=== PATIENT | male | born 1980 | race Caucasian/White ===

== ENCOUNTER 2018-10-22 17:01 | Emergency (ER) | payer OTHER, SELFPAY ==
[2018-10-22 17:46] LABS: Absolute Lymphocytes (CBC) 2.1 K/uL (0.7-4.9); Basophils % 0.6 % (0-1.3); Eosinophils % 3.5 % (0-4.4); Hematocrit 48.6 % (39.6-49.0); Lymphocytes % 31.2 % (15.3-44.8); MPV 7.1 fL (7.6-11.3); Monocytes % 11.2 % (3.3-12.3); RBC Red Blood Cell Count 5.28 M/uL (4.33-5.43)
[2018-10-22 18:03] LABS: ALT/SGPT 22 U/L (12-78); AST/SGOT 15 U/L (15-37); Alkaline Phosphatase 74 U/L (45-117); BUN Blood Urea Nitrogen 8 mg/dL (7-18); Bicarbonate 27 mmol/L (21-32); Bilirubin Direct 0.2 mg/dL (0-0.2); Bilirubin Total 0.7 mg/dL (0.2-1.0); Glucose Level 89 mg/dL (74-106); Lipase 42 U/L (73-393); Potassium 3.7 mmol/L (3.5-5.1); Protein, Total 7.1 g/dL (6.4-8.2); Sodium Level 138 mmol/L (136-145)
[2018-10-22] MEDS ORDERED: NA CHLORIDE 0.9% 1,000 ML ONE (18:07)
--- NOTE | 2018-10-22 18:46 | ER ---
Nurse's Notes [facility] Name: Nilson Chicas Age: 38 yrs Sex: Male : 1980 Arrival Date: 10/22/2018 Time: 17:03 Bed 17 Private MD: Diagnosis: Diarrhea, unspecified Presentation: 10/22 17:04 Presenting complaint: Patient states: i ve been having abd pain for 4 days now and hj reports diarrhea; denies fever and chills; denies N/V; pt requested for a work note to go back to work;. Transition of care: patient was not received from another setting of care. Onset of symptoms was October 22, 2018. Risk Assessment: Do you want to hurt yourself or someone else? Patient reports no desire to harm self or others. Initial Sepsis Screen: Does the patient meet any 2 criteria? No. Patient's initial sepsis screen is negative. Does the patient have a suspected source of infection? No. Patient's initial sepsis screen is negative. Care prior to arrival: None. 17:04 Method Of Arrival: Ambulatory 17:04 Acuity: PA 3 hj Historical: - Allergies: 17:06 PENICILLINS; hj - PMHx: 17:06 None; hj - PSHx: 17:06 None; hj - Immunization history:: Adult Immunizations up to date. - Social history:: Smoking status: Patient uses tobacco products, smokes one pack cigarettes per day. - Ebola Screening: : Patient negative for fever greater than or equal to 101.5 degrees Fahrenheit, and additional compatible Ebola Virus Disease symptoms Patient denies exposure to infectious person Patient denies travel to an Ebola-affected area in the 21 days before illness onset No symptoms or risks identified at this time. Screenin:39 Abuse screen: Denies threats or abuse. Denies injuries from another. Nutritional ca1 screening: No deficits noted. Tuberculosis screening: No symptoms or risk factors identified. Fall Risk IV access (20 points). Assessment: 17:39 General: Appears in no apparent distress. comfortable, Behavior is calm, cooperative, ca1 appropriate for age. General: pt reports pain has resolved. He had diarrhea but has resolved too. He said he just needs a work note to go back to work. . Pain: Denies pain. Neuro: Level of Consciousness is awake, alert, obeys commands, Oriented to person, place, time, situation. Cardiovascular: Heart tones S1 S2 present Capillary refill < 3 seconds Patient's skin is warm and dry. Respiratory: Airway is patent Respiratory effort is even, unlabored, Respiratory pattern is regular, symmetrical, Breath sounds are clear bilaterally. GI: Abdomen is flat, non-distended, Bowel sounds present X 4 quads. Abd is soft and non tender X 4 quads. : No deficits noted. No signs and/or symptoms were reported regarding the genitourinary system. EENT: No deficits noted. No signs and/or symptoms were reported regarding the EENT system. Derm: Skin is intact, is healthy with good turgor, Skin is pink, warm \T\ dry. Musculoskeletal: Circulation, motion, and sensation intact. Capillary refill < 3 seconds. 18:40 Reassessment: Patient appears in no apparent distress at this time. Patient and/or ca1 family updated on plan of care and expected duration. Pain level reassessed. Patient is alert, oriented x 3, equal unlabored respirations, skin warm/dry/pink. 19:16 Reassessment: Patient appears in no apparent distress at this time. Patient is alert, ca1 oriented x 3, equal unlabored respirations, skin warm/dry/pink. Vital Signs: 17:06 BP 129 / 80; Pulse 114; Resp 16; Temp 98.5(TE); Pulse Ox 98% on R/A; Weight 81.65 kg; hj Height 6 ft. 0 in. (182.88 cm); Pain 2/10; 17:43 BP 122 / 94; Pulse 76; Resp 18 S; Pulse Ox 98% on R/A; ca1 18:39 BP 120 / 80; Pulse 81; Resp 16 S; Temp 98.2(O); Pulse Ox 98% on R/A; ca1 19:16 BP 110 / 76; Pulse 79; Resp 17 S; Temp 98.4(O); Pulse Ox 97% on R/A; ca1 17:06 Body Mass Index 24.41 (81.65 kg, 182.88 cm) ED Course: 17:03 Patient arrived in ED. as 17:05 Triage completed. hj 17:06 Arm band placed on right wrist. hj 17:08 Jethro Grimaldo, RN is Primary Nurse. bp 17:09 Primary Nurse role handed off by Jethro Grimaldo, BENNY bp 17:14 Ayaan Preston NP is PHCP. pm1 17:14 Jacinto Hernandez MD is Attending Physician. pm1 17:28 Esther Vargas RN is Primary Nurse. ca1 17:39 Patient has correct armband on for positive identification. Placed in gown. Bed in low ca1 position. Call light in reach. Side rails up X 1. Pulse ox on. NIBP on. Warm blanket given. 17:39 No provider procedures requiring assistance completed. Inserted saline lock: 20 gauge ca1 in right antecubital area, using aseptic technique. Blood collected. 18:12 Urine collected: clean catch specimen, clear. dh3 19:18 IV discontinued, intact, bleeding controlled, No redness/swelling at site. Pressure ca1 dressing applied. Administered Medications: 17:53 Drug: NS 0.9% 1000 ml Route: IV; Rate: 1000 ml; Site: right antecubital; ca1 19:00 Follow up: Response: No adverse reaction; IV Status: Completed infusion ca1 Outcome: 18:46 Discharge ordered by . pm1 19:18 Discharged to home ambulatory. ca1 19:18 Condition: stable 19:18 Discharge instructions given to patient, Instructed on discharge instructions, follow up and referral plans. Demonstrated understanding of instructions, follow-up care. 19:19 Patient left the ED. ca1 Signatures: Li Rivera Henry, RN RN Ayaan Preston NP [employer] pm1 ChaoMarielaCatalina 3 Jethro Grimaldo RN RN Esther Vargas RN RN [facility] Corrections: (The following items were deleted from the chart) 17:08 17:04 Presenting complaint: Patient states: i ve been having abd pain for 4 days now hj and reports diarrhea; denies fever and chills; denies N/V; hj
--- NOTE | 2018-10-22 18:47 | EDPHYS ---
Physician Documentation [facility] Name: Nilson Chicas Age: 38 yrs Sex: Male : 1980 Arrival Date: 10/22/2018 Time: 17:03 Bed 17 Private MD: ED Physician Jacinto Hernandez HPI: 10/22 17:45 This 38 yrs old Male presents to ER via Ambulatory with complaints of pm1 Diarrhea. 17:45 The patient presents to the emergency department with diarrhea. pm1 17:45 Onset: The symptoms/episode began/occurred 4 day(s) ago. Possible causes: bad food pm1 exposure, moving and eating food out of coolers. The symptoms are aggravated by nothing. The symptoms are alleviated by nothing. Associated signs and symptoms: Pertinent negatives: abdominal pain, dysuria, fever, nausea, vomiting. Severity of symptoms: in the emergency department the symptoms are unchanged. The patient has not experienced similar symptoms in the past. The patient has not recently seen a physician. Historical: - Allergies: 17:06 PENICILLINS; hj - PMHx: 17:06 None; hj - PSHx: 17:06 None; hj - Immunization history:: Adult Immunizations up to date. - Social history:: Smoking status: Patient uses tobacco products, smokes one pack cigarettes per day. - Ebola Screening: : Patient negative for fever greater than or equal to 101.5 degrees Fahrenheit, and additional compatible Ebola Virus Disease symptoms Patient denies exposure to infectious person Patient denies travel to an Ebola-affected area in the 21 days before illness onset No symptoms or risks identified at this time. ROS: 17:45 Constitutional: Negative for fever, chills, and weight loss, Eyes: Negative for injury, pm1 pain, redness, and discharge, ENT: Negative for injury, pain, and discharge, Neck: Negative for injury, pain, and swelling, Cardiovascular: Negative for chest pain, palpitations, and edema, Respiratory: Negative for shortness of breath, cough, wheezing, and pleuritic chest pain. 17:45 Back: Negative for injury and pain, : Negative for injury, bleeding, discharge, and swelling, MS/Extremity: Negative for injury and deformity, Skin: Negative for injury, rash, and discoloration, Neuro: Negative for headache, weakness, numbness, tingling, and seizure. 17:45 Abdomen/GI: Positive for diarrhea, Negative for abdominal pain, nausea and vomiting. Exam: 17:45 Constitutional: This is a well developed, well nourished patient who is awake, alert, pm1 and in no acute distress. Head/Face: Normocephalic, atraumatic. Neck: Trachea midline, no thyromegaly or masses palpated, and no cervical lymphadenopathy. Supple, full range of motion without nuchal rigidity, or vertebral point tenderness. No Meningismus. Chest/axilla: Normal chest wall appearance and motion. Nontender with no deformity. No lesions are appreciated. Cardiovascular: Regular rate and rhythm with a normal S1 and S2. No gallops, murmurs, or rubs. Normal PMI, no JVD. No pulse deficits. Respiratory: Lungs have equal breath sounds bilaterally, clear to auscultation and percussion. No rales, rhonchi or wheezes noted. No increased work of breathing, no retractions or nasal flaring. 17:45 Back: No spinal tenderness. No costovertebral tenderness. Full range of motion. Skin: Warm, dry with normal turgor. Normal color with no rashes, no lesions, and no evidence of cellulitis. MS/ Extremity: Pulses equal, no cyanosis. Neurovascular intact. Full, normal range of motion. 17:45 Abdomen/GI: Inspection: abdomen appears normal, Bowel sounds: normal, Palpation: abdomen is soft and non-tender, in all quadrants. 17:45 Neuro: Orientation: is normal, Motor: is normal, moves all fours. Vital Signs: 17:06 BP 129 / 80; Pulse 114; Resp 16; Temp 98.5(TE); Pulse Ox 98% on R/A; Weight 81.65 kg; hj Height 6 ft. 0 in. (182.88 cm); Pain 2/10; 17:43 BP 122 / 94; Pulse 76; Resp 18 S; Pulse Ox 98% on R/A; ca1 18:39 BP 120 / 80; Pulse 81; Resp 16 S; Temp 98.2(O); Pulse Ox 98% on R/A; ca1 19:16 BP 110 / 76; Pulse 79; Resp 17 S; Temp 98.4(O); Pulse Ox 97% on R/A; ca1 17:06 Body Mass Index 24.41 (81.65 kg, 182.88 cm) hj MDM: 17:19 Patient medically screened. pm1 18:45 Data reviewed: vital signs. Data interpreted: Pulse oximetry: on room air is 98 %. pm1 Interpretation: normal. Counseling: I had a detailed discussion with the patient and/or guardian regarding: the historical points, exam findings, and any diagnostic results supporting the discharge/admit diagnosis, lab results, the need for outpatient follow up, to return to the emergency department if symptoms worsen or persist or if there are any questions or concerns that arise at home. 10/22 17:23 Order name: Basic Metabolic Panel pm1 10/22 17:23 Order name: CBC with Diff; Complete Time: 18:10 pm1 10/22 17:23 Order name: Creatinine for Radiology; Complete Time: 18:10 pm1 10/22 17:23 Order name: Hepatic Function; Complete Time: 18:10 pm1 10/22 17:23 Order name: Lipase; Complete Time: 18:10 pm1 10/22 17:24 Order name: Basic Metabolic Panel; Complete Time: 18:10 EDMS 10/22 17:23 Order name: IV Saline Lock; Complete Time: 17:39 pm1 10/22 17:23 Order name: Labs collected and sent; Complete Time: 17:39 pm1 10/22 17:40 Order name: Urine Dipstick-Ancillary (obtain specimen); Complete Time: 18:13 pm1 10/22 18:32 Order name: Urine Dipstick--Ancillary (enter results) bd Administered Medications: 17:53 Drug: NS 0.9% 1000 ml Route: IV; Rate: 1000 ml; Site: right antecubital; ca1 19:00 Follow up: Response: No adverse reaction; IV Status: Completed infusion ca1 Disposition: 10/23 05:52 Co-signature as Attending Physician, Jacinto Hernandez MD I agree with the assessment and eliseo plan of care. Disposition: 10/22/18 18:46 Discharged to Home. Impression: Diarrhea, unspecified. - Condition is Stable. - Discharge Instructions: Food Choices to Help Relieve Diarrhea, Adult, Diarrhea, Adult, Food Poisoning. - Work release form, Medication Reconciliation Form, Thank You Letter, Antibiotic Education, Prescription Opioid Use form. - Follow up: Emergency Department; When: As needed; Reason: Worsening of condition. Follow up: Private Physician; When: 2 - 3 days; Reason: Recheck today's complaints, Continuance of care, Re-evaluation by your physician. - Problem is new. - Symptoms have improved. Signatures: Dispatcher [employer] EDMS Jacinto Hernandez MD MD cha Joaquin, Henry RN RN hj Ayaan Preston, RECEIVING ROOM CLERK RECEIVING ROOM CLERK pm1 Esther Vargas RN RN ca1 Corrections: (The following items were deleted from the chart) 10/22 19:19 18:46 10/22/2018 18:46 Discharged to Home. Impression: Diarrhea, unspecified. Condition ca1 is Stable. Forms are Medication Reconciliation Form, Thank You Letter, Antibiotic Education, Prescription Opioid Use. Follow up: Emergency Department; When: As needed; Reason: Worsening of condition. Follow up: Private Physician; When: 2 - 3 days; Reason: Recheck today's complaints, Continuance of care, Re-evaluation by your physician. Problem is new. Symptoms have improved. pm1
[2018-10-22 20:09] LABS: Urine Blood NEGATIVE (NEG); Urine Glucose NEGATIVE (NEG); Urine Protein NEGATIVE (NEG)
== END 2018-10-22 19:19 | disposition home or self-care (01) ==
LOC: ER 17:01
DX: R19.7 Diarrhea, unspecified (principal); Z88.0 Allergy status to penicillin; F17.210 Nicotine dependence, cigarettes, uncomplicated
CPT/HCPCS: 36415; 80048; 80076; 81003; 83690; 85025; 96360; 99284; J7030

== ENCOUNTER 2018-10-27 15:04 | Emergency (ER) | payer SELFPAY ==
--- NOTE | 2018-10-27 15:23 | ER ---
Nurse's Notes [facility] Name: Nilson Chicas Age: 38 yrs Sex: Male : 1980 Arrival Date: 10/27/2018 Time: 15:06 Bed 15 Private MD: Angelina Aj H Diagnosis: Diarrhea, unspecified;Vomiting, unspecified Presentation: 10/27 15:09 Presenting complaint: Patient states: N/V/D for three days, denies pain or fevers, I am la1 in between moving so I have been eating food out of a cooler. Denies ill contacts. Transition of care: patient was not received from another setting of care. Onset of symptoms was October 27, 2018. Risk Assessment: Do you want to hurt yourself or someone else? Patient reports no desire to harm self or others. Initial Sepsis Screen: Does the patient meet any 2 criteria? No. Patient's initial sepsis screen is negative. Does the patient have a suspected source of infection? No. Patient's initial sepsis screen is negative. Care prior to arrival: None. 15:09 Method Of Arrival: Ambulatory la1 15:09 Acuity: PA 3 la1 Historical: - Allergies: 15:10 PENICILLINS; la1 - Home Meds: 15:10 None [Active]; la1 - PMHx: 15:10 None; la1 - PSHx: 15:10 None; la1 - Immunization history:: Adult Immunizations up to date. - Social history:: Smoking status: Patient uses tobacco products, smokes one pack cigarettes per day. - Ebola Screening: : No symptoms or risks identified at this time. Screenin:20 Abuse screen: Denies threats or abuse. Denies injuries from another. Nutritional sg screening: No deficits noted. Tuberculosis screening: No symptoms or risk factors identified. Never had TB. Fall Risk None identified. Assessment: 15:20 General: Appears in no apparent distress. well groomed, well developed, well nourished, sg Behavior is calm, cooperative, appropriate for age. Pain: Complains of pain in abdomen Pain currently is 2 out of 10 on a pain scale. Quality of pain is described as aching. Neuro: Level of Consciousness is awake, alert, obeys commands, Oriented to person, place, time, Corn Cutter Operator are equal bilaterally Moves all extremities. Full function Speech is normal, Facial symmetry appears normal. Cardiovascular: Capillary refill is brisk in bilateral fingers Patient's skin is warm and dry. Chest pain is denied. Respiratory: Airway is patent Respiratory effort is even, unlabored, Respiratory pattern is regular, symmetrical, Breath sounds are clear. GI: Abdomen is round non-distended, Bowel sounds present X 4 quads. Abd is soft and non tender X 4 quads. Reports diarrhea, tolerance of fluids, tolerance of food. : No signs and/or symptoms were reported regarding the genitourinary system. EENT: No signs and/or symptoms were reported regarding the EENT system. Derm: Skin is pink, warm \\T\\ dry. Musculoskeletal: No deficits noted. Circulation, motion, and sensation intact. Range of motion: intact in all extremities, Swelling absent. 15:21 Reassessment: pt reports " Im fine with the vomiting and diarrhea, Im going to be sg honest, im really just here because I need a work excuse.". Vital Signs: 15:10 BP 137 / 89; Pulse 94; Resp 16; Temp 97.5; Pulse Ox 98% on R/A; Weight 81.65 kg; Height la1 6 ft. 0 in. (182.88 cm); 15:10 Body Mass Index 24.41 (81.65 kg, 182.88 cm) la1 ED Course: 15:06 Patient arrived in ED. mr 15:06 None, None is Private Physician. mr 15:06 Angelina Aj, DO is Private Physician. mr 15:10 Triage completed. la1 15:10 Arm band placed on left wrist. la1 15:13 Ayaan Preston, NEELAM is PHCP. pm1 15:13 Sean Scott MD is Attending Physician. pm1 15:16 Sanjiv Forde, RN is Primary Nurse. sg 15:20 Patient has correct armband on for positive identification. Bed in low position. Pulse sg ox on. NIBP on. 15:30 No provider procedures requiring assistance completed. Patient did not have IV access sg during this emergency room visit. Administered Medications: No medications were administered Outcome: 15:22 Discharge ordered by MD. pm1 15:24 Discharged to home ambulatory, with family. sg 15:24 Condition: good 15:24 Discharge instructions given to patient, Instructed on discharge instructions, follow up and referral plans. safety practices, Demonstrated understanding of instructions, follow-up care. 15:24 Patient left the ED. sg Signatures: Sanjiv Forde RN RN sg Liat Dove Solomon, Horacio RN RN la1 Ayaan Preston, NAILHEAD PUNCHER NAILHEAD PUNCHER pm1 Corrections: (The following items were deleted from the chart) 15:31 15:20 GI: Abdomen is round non-distended, Bowel sounds present X 4 quads. Abd is soft sg and non tender X 4 quads. sg
--- NOTE | 2018-10-27 15:23 | EDPHYS ---
Physician Documentation [facility] Name: Nilson Chicas Age: 38 yrs Sex: Male : 1980 Arrival Date: 10/27/2018 Time: 15:06 Bed 15 Private MD: Angelina Aj H ED Physician Sean Scott HPI: 10/27 15:20 This 38 yrs old Male presents to ER via Ambulatory with complaints of pm1 Vomiting/Diarrhea. 15:20 The patient presents to the emergency department with vomiting, 2 times since the onset pm1 of symptoms, diarrhea. Onset: The symptoms/episode began/occurred 9 day(s) ago. Possible causes: bad food exposure, Patient is eating sandwich ingredients out of cooler since moving here. Plans on getting refrigerator on the weekend. Associated signs and symptoms: Pertinent negatives: abdominal pain, constipation, dysuria, fever, GI bleeding. Severity of symptoms: Pain is currently a 0 / 10. The patient has been recently seen at the [facility] Emergency Department, last week, same complaint. Patient was seen here by me 5 days ago for the same complaint. patient recently moved here and has been eating sandwich ingredients out of a cooler. Patient feels that this is the cause for his symptoms. Patient denies any abdominal pain and his diarrhea and 2 total episodes of vomiting since onset of his symptoms do not bother him. Patient does not want any evaluation with labs or imaging. He does not want any medications. He just wants a work note to go to work tomorrow.. Historical: - Allergies: 15:10 PENICILLINS; la1 - Home Meds: 15:10 None [Active]; la1 - PMHx: 15:10 None; la1 - PSHx: 15:10 None; la1 - Immunization history:: Adult Immunizations up to date. - Social history:: Smoking status: Patient uses tobacco products, smokes one pack cigarettes per day. - Ebola Screening: : No symptoms or risks identified at this time. ROS: 15:20 Constitutional: Negative for fever, chills, and weight loss, Eyes: Negative for injury, pm1 pain, redness, and discharge, ENT: Negative for injury, pain, and discharge, Neck: Negative for injury, pain, and swelling, Cardiovascular: Negative for chest pain, palpitations, and edema, Respiratory: Negative for shortness of breath, cough, wheezing, and pleuritic chest pain. 15:20 Back: Negative for injury and pain, : Negative for injury, bleeding, discharge, and swelling, MS/Extremity: Negative for injury and deformity, Skin: Negative for injury, rash, and discoloration, Neuro: Negative for headache, weakness, numbness, tingling, and seizure. 15:20 Abdomen/GI: Positive for nausea, vomiting, and diarrhea, Negative for abdominal pain, constipation. Exam: 15:20 Constitutional: This is a well developed, well nourished patient who is awake, alert, pm1 and in no acute distress. Head/Face: Normocephalic, atraumatic. Chest/axilla: Normal chest wall appearance and motion. Nontender with no deformity. No lesions are appreciated. Cardiovascular: Regular rate and rhythm with a normal S1 and S2. No gallops, murmurs, or rubs. No pulse deficits. Respiratory: Lungs have equal breath sounds bilaterally, clear to auscultation and percussion. No rales, rhonchi or wheezes noted. No increased work of breathing, no retractions or nasal flaring. Abdomen/GI: Soft, non-tender, with normal bowel sounds. No distension or tympany. No guarding or rebound. No evidence of tenderness throughout. Back: No spinal tenderness. No costovertebral tenderness. Full range of motion. Skin: Warm, dry with normal turgor. Normal color with no rashes, no lesions, and no evidence of cellulitis. MS/ Extremity: Pulses equal, no cyanosis. Neurovascular intact. Full, normal range of motion. 15:20 Neuro: Orientation: is normal, Motor: is normal, moves all fours, Sensation: is normal, no obvious gross deficits, Gait: is steady, at a normal pace, without difficulty. Vital Signs: 15:10 BP 137 / 89; Pulse 94; Resp 16; Temp 97.5; Pulse Ox 98% on R/A; Weight 81.65 kg; Height la1 6 ft. 0 in. (182.88 cm); 15:10 Body Mass Index 24.41 (81.65 kg, 182.88 cm) la1 MDM: 15:20 ED course: Patient does not want any lab work or any medications. He is not concerned pm1 about his diarrhea or 2 episodes of vomiting since onset. He feels fine and he just wants a return to work note for tomorrow. 15:20 Counseling: I had a detailed discussion with the patient and/or guardian regarding: the pm1 historical points, exam findings, and any diagnostic results supporting the discharge/admit diagnosis, the need for outpatient follow up, to return to the emergency department if symptoms worsen or persist or if there are any questions or concerns that arise at home. 15:20 Data reviewed: vital signs. Data interpreted: Pulse oximetry: on room air is 98 %. pm1 Interpretation: normal. 15:22 Patient medically screened. pm1 Administered Medications: No medications were administered Disposition: 10/27/18 15:22 Discharged to Home. Impression: Diarrhea, unspecified, Vomiting, unspecified. - Condition is Stable. - Discharge Instructions: Food Choices to Help Relieve Diarrhea, Adult, Diarrhea, Adult, Food Poisoning, [id number], Vomiting, Adult. - Work release form, Medication Reconciliation Form, Thank You Letter, Antibiotic Education, Prescription Opioid Use form. - Follow up: Emergency Department; When: As needed; Reason: Worsening of condition. Follow up: Private Physician; When: 2 - 3 days; Reason: Recheck today's complaints, Continuance of care, Re-evaluation by your physician. - Problem is new. - Symptoms have improved. Signatures: Sanjiv Forde RN RN sg Horacio Carbajal RN RN la1 Ayaan Preston, AUTOMATIC COIN MACHINE MECHANIC AUTOMATIC COIN MACHINE MECHANIC pm1 Corrections: (The following items were deleted from the chart) 15:24 15:22 10/27/2018 15:22 Discharged to Home. Impression: Diarrhea, unspecified; Vomiting, sg unspecified. Condition is Stable. Forms are Medication Reconciliation Form, Thank You Letter, Antibiotic Education, Prescription Opioid Use. Follow up: Emergency Department; When: As needed; Reason: Worsening of condition. Follow up: Private Physician; When: 2 - 3 days; Reason: Recheck today's complaints, Continuance of care, Re-evaluation by your physician. Problem is new. Symptoms have improved. pm1
== END 2018-10-27 15:24 | disposition home or self-care (01) ==
LOC: ER 15:04
DX: R11.10 Vomiting, unspecified (principal); R19.7 Diarrhea, unspecified; Z88.0 Allergy status to penicillin; F17.210 Nicotine dependence, cigarettes, uncomplicated
CPT/HCPCS: 99283

== ENCOUNTER 2020-02-20 08:43 | Emergency (ER) | payer SELFPAY ==
--- NOTE | 2020-02-20 09:35 | ER ---
Nurse's Notes [facility] Name: Nilson Chicas Age: 39 yrs Sex: Male : 1980 Arrival Date: 02/20/2020 Time: 08:44 Bed 17 Private MD: Diagnosis: Lateral epicondylitis, left elbow;Lateral epicondylitis Presentation: 02/19 09:16 Chief complaint: Patient states: Left elbow pain x 2 week, radiating to left shoulder jl7 since yesterday, denies chest pain, feeling like burning/pinching; denies trauma. Reports flushing with nausea x 1 day. Coronavirus screen: Client denies travel out of the [place] in the last 14 days. At this time, the client does not indicate any symptoms associated with coronavirus-19. Ebola Screen: No symptoms or risks identified at this time. Initial Sepsis Screen: Does the patient meet any 2 criteria? No. Patient's initial sepsis screen is negative. Does the patient have a suspected source of infection? No. Patient's initial sepsis screen is negative. Risk Assessment: Do you want to hurt yourself or someone else? Patient reports no desire to harm self or others. Onset of symptoms was February 09, 2020. Care prior to arrival: None. Transition of care: patient was not received from another setting of care. 09:16 Method Of Arrival: Ambulatory 7 09:16 Acuity: PA 4 jl7 Triage Assessment: 09:19 General: Appears in no apparent distress. uncomfortable, Behavior is calm, cooperative, jl7 appropriate for age. Pain: Complains of pain in left elbow Pain radiates to posterior aspect of left shoulder Pain currently is 7 out of 10 on a pain scale. Quality of pain is described as sharp, Is continuous. Neuro: Level of Consciousness is awake, alert, obeys commands, Oriented to person, place, time, situation. Cardiovascular: Patient's skin is warm and dry. Respiratory: Airway is patent Respiratory effort is even, unlabored, Respiratory pattern is regular, symmetrical. Derm: Skin is pink, warm \T\ dry. Musculoskeletal: Range of motion: intact in all extremities, Swelling present in left elbow Tenderness present in left elbow. Historical: - Allergies: 09:19 PENICILLINS; jl7 - Home Meds: 09:19 None [Active]; jl7 - PMHx: 09:19 None; jl7 - PSHx: 09:19 None; jl7 - Immunization history:: Adult Immunizations up to date. - Social history:: Smoking status: Patient denies any tobacco usage or history of. - Family history:: not pertinent. Screenin:20 Abuse screen: Denies threats or abuse. Denies injuries from another. Nutritional jl7 screening: No deficits noted. Tuberculosis screening: No symptoms or risk factors identified. Fall Risk None identified. Assessment: 09:20 General: See triage assessment. jl7 Vital Signs: 09:16 BP 126 / 92; Pulse 78; Resp 17 S; Temp 98.3(O); Pulse Ox 100% on R/A; Weight 81.65 kg jl7 (R); Height 6 ft. 0 in. (182.88 cm) (R); Pain 7/10; 09:16 Body Mass Index 24.41 (81.65 kg, 182.88 cm) jl7 ED Course: 08:44 Patient arrived in ED. ag5 09:07 Jacinto Hernandez MD is Attending Physician. eliseo 09:08 Chrissie Peters, BENNY is Primary Nurse. jl7 09:19 Triage completed. jl7 09:19 Arm band placed on right wrist. jl7 09:20 Patient has correct armband on for positive identification. Bed in low position. Call jl7 light in reach. Side rails up X 1. Pulse ox on. NIBP on. 09:34 Wan Patel MD is Referral Physician. eliseo 09:53 Elbow Left 3 View XRAY In Process Unspecified. EDMS 10:15 No provider procedures requiring assistance completed. Patient did not have IV access jl7 during this emergency room visit. 10:15 Sling applied to left arm. jl7 Administered Medications: 10:02 Drug: Motrin 800 mg Route: PO; jl7 10:15 Follow up: Response: Medication administered at discharge. jl7 Outcome: :34 Discharge ordered by . eliseo 10:15 Discharged to home ambulatory. jl7 10:15 Condition: good 10:15 Discharge instructions given to patient, Instructed on discharge instructions, follow up and referral plans. medication usage, Demonstrated understanding of instructions, follow-up care, medications, Prescriptions given X 1. 10:16 Patient left the ED. jl7 Signatures: Dispatcher [employer] EDMS Jacinto Hernandez, MD MD eliseo Peters, Jahala, RN RN jl7 Mariama Leung ag5 Corrections: (The following items were deleted from the chart) 10:15 10:15 IV discontinued, intact, bleeding controlled, No redness/swelling at site. jl7 Pressure dressing applied, jl7
--- NOTE | 2020-02-20 09:35 | EDPHYS ---
Physician Documentation [facility] Name: Nilson Chicas Age: 39 yrs Sex: Male : 1980 Arrival Date: 02/20/2020 Time: 08:44 Bed 17 Private MD: JULY Physician Jacinto Hernandez HPI: 02/19 09:30 This 39 yrs old Male presents to ER via Ambulatory with complaints of Arm eliseo Problem. 09:30 The patient or guardian complains of decreased range of motion, pain, that is acute. eliseo The complaints affect the left antecubital area and left elbow. Context: The problem was sustained at home. Onset: The symptoms/episode began/occurred 3 day(s) ago. Treatment prior to arrival includes: no previous treatment. Modifying factors: The symptoms are alleviated by remaining still, the symptoms are aggravated by movement, bending arm. Associated signs and symptoms: The patient has no apparent associated signs or symptoms. Historical: - Allergies: 09:19 PENICILLINS; jl7 - Home Meds: 09:19 None [Active]; jl7 - PMHx: 09:19 None; jl7 - PSHx: 09:19 None; jl7 - Immunization history:: Adult Immunizations up to date. - Social history:: Smoking status: Patient denies any tobacco usage or history of. - Family history:: not pertinent. ROS: 09:30 Constitutional: Negative for fever, chills, and weight loss, Eyes: Negative for injury, eliseo pain, redness, and discharge, ENT: Negative for injury, pain, and discharge, Neck: Negative for injury, pain, and swelling, Cardiovascular: Negative for chest pain, palpitations, and edema, Respiratory: Negative for shortness of breath, cough, wheezing, and pleuritic chest pain, Abdomen/GI: Negative for abdominal pain, nausea, vomiting, diarrhea, and constipation, Back: Negative for injury and pain, : Negative for injury, bleeding, discharge, and swelling, Skin: Negative for injury, rash, and discoloration, Neuro: Negative for headache, weakness, numbness, tingling, and seizure, Psych: Negative for depression, anxiety, suicide ideation, homicidal ideation, and hallucinations, Allergy/Immunology: Negative for hives, rash, and allergies, Endocrine: Negative for neck swelling, polydipsia, polyuria, polyphagia, and marked weight changes, Hematologic/Lymphatic: Negative for swollen nodes, abnormal bleeding, and unusual bruising. 09:30 MS/extremity: Positive for decreased range of motion, pain, swelling, tenderness, of the left elbow. Exam: 09:30 Constitutional: This is a well developed, well nourished patient who is awake, alert, eliseo and in no acute distress. Head/Face: Normocephalic, atraumatic. Eyes: Pupils equal round and reactive to light, extra-ocular motions intact. Lids and lashes normal. Conjunctiva and sclera are non-icteric and not injected. Cornea within normal limits. Periorbital areas with no swelling, redness, or edema. ENT: Nares patent. No nasal discharge, no septal abnormalities noted. Tympanic membranes are normal and external auditory canals are clear. Oropharynx with no redness, swelling, or masses, exudates, or evidence of obstruction, uvula midline. Mucous membranes moist. Neck: Trachea midline, no thyromegaly or masses palpated, and no cervical lymphadenopathy. Supple, full range of motion without nuchal rigidity, or vertebral point tenderness. No Meningismus. Chest/axilla: Normal chest wall appearance and motion. Nontender with no deformity. No lesions are appreciated. Cardiovascular: Regular rate and rhythm with a normal S1 and S2. No gallops, murmurs, or rubs. Normal PMI, no JVD. No pulse deficits. Respiratory: Lungs have equal breath sounds bilaterally, clear to auscultation and percussion. No rales, rhonchi or wheezes noted. No increased work of breathing, no retractions or nasal flaring. Abdomen/GI: Soft, non-tender, with normal bowel sounds. No distension or tympany. No guarding or rebound. No evidence of tenderness throughout. Back: No spinal tenderness. No costovertebral tenderness. Full range of motion. Male : Normal genitalia with no discharge or lesions. Skin: Warm, dry with normal turgor. Normal color with no rashes, no lesions, and no evidence of cellulitis. Neuro: Awake and alert, GCS 15, oriented to person, place, time, and situation. Cranial nerves II-XII grossly intact. Motor strength 5/5 in all extremities. Sensory grossly intact. Cerebellar exam normal. Normal gait. Psych: Awake, alert, with orientation to person, place and time. Behavior, mood, and affect are within normal limits. 09:30 Musculoskeletal/extremity: Extremities: grossly normal except: noted in the left antecubital area and left elbow: decreased ROM, pain. Vital Signs: 09:16 BP 126 / 92; Pulse 78; Resp 17 S; Temp 98.3(O); Pulse Ox 100% on R/A; Weight 81.65 kg 7 (R); Height 6 ft. 0 in. (182.88 cm) (R); Pain 7/10; 09:16 Body Mass Index 24.41 (81.65 kg, 182.88 cm) jl7 MDM: 09:07 Patient medically screened. [facility] 09:33 Data reviewed: vital signs, nurses notes, radiologic studies, plain films. [facility] 09:38 Differential diagnosis: closed fracture, tendonitis. Data interpreted: campus monitor: [facility] not applicable for this patient encounter. rate is 78 beats/min, rhythm is regular, Pulse oximetry: on room air is 100 %. Test interpretation: by ED physician or midlevel provider: plain radiologic studies. Counseling: I had a detailed discussion with the patient and/or guardian regarding: the historical points, exam findings, and any diagnostic results supporting the discharge/admit diagnosis, radiology results, the need for outpatient follow up, for definitive care, a orthopedic surgeon. 02/19 09:30 Order name: Elbow Left 3 View XRAY [facility] 02/19 09:30 Order name: Ice pack; Complete Time: 09:58 [facility] 02/19 09:30 Order name: Sling; Complete Time: 10:14 [facility] Administered Medications: 10:02 Drug: Motrin 800 mg Route: PO; [facility] 10:15 Follow up: Response: Medication administered at discharge. [facility] Disposition: 02/20/20 09:34 Discharged to Home. Impression: Lateral epicondylitis, left elbow, Lateral epicondylitis. - Condition is Stable. - Discharge Instructions: Tennis Elbow, Tendinitis, Tennis Elbow, [id number], Tendinitis, [id number]. - Prescriptions for Ibuprofen 600 mg Oral Tablet - take 1 tablet by ORAL route every 6 hours As needed take with food; 20 tablet. - Medication Reconciliation Form, Thank You Letter, Antibiotic Education, Prescription Opioid Use form. - Follow up: Private Physician; When: 2 - 3 days; Reason: Recheck today's complaints, Continuance of care, Re-evaluation by your physician. Follow up: Wan Patel MD; When: 2 - 3 days; Reason: Recheck today's complaints, Continuance of care, Re-evaluation by your physician. - Problem is new. - Symptoms have improved. Signatures: Dispatcher [employer] Jacinto Garcia MD MD cha Leal, Jahala RN RN jl7 Corrections: (The following items were deleted from the chart) 10:16 09:34 02/20/2020 09:34 Discharged to Home. Impression: Lateral epicondylitis, left jl7 elbow; Lateral epicondylitis. Condition is Stable. Forms are Medication Reconciliation Form, Thank You Letter, Antibiotic Education, Prescription Opioid Use. Follow up: Private Physician; When: 2 - 3 days; Reason: Recheck today's complaints, Continuance of care, Re-evaluation by your physician. Follow up: Dr. Wan Patel; When: 2 - 3 days; Reason: Recheck today's complaints, Continuance of care, Re-evaluation by your physician. Problem is new. Symptoms have improved. eliseo
[2020-02-20] MEDS ORDERED: IBUPROFEN 400 MG TAB ONE (10:09)
[2020-02-20 10:24] VITALS: BP 126/92; TEMP 98.3; O2SAT 100
--- NOTE | 2020-02-20 10:25 | RAD REPORT ---
EXAM DESCRIPTION: RAD - Elbow Left 3 View - 02/20/2020 9:54 am CLINICAL HISTORY: Pain;Swelling COMPARISON: None. FINDINGS: No fracture is identified and no elevated posterior fat pad. There is no dislocation or pe riosteal reaction noted. No foreign body or other soft tissue abnormality. IMPRESSION: Negative left elbow examination.
== END 2020-02-20 10:16 | disposition home or self-care (01) ==
LOC: ER 08:43
DX: M77.12 Lateral epicondylitis, left elbow (principal); Z88.0 Allergy status to penicillin
CPT/HCPCS: 99284

== ENCOUNTER 2020-07-23 13:45 | Emergency (ER) | payer OTHER, SELFPAY ==
[2020-07-23] MEDS ORDERED: MORPHINE 4 MG/ML SYR ONE (14:21)
[2020-07-23] MEDS ORDERED: ONDANSETRON 4 MG/2 ML VIAL ONE (14:22)
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
[2020-07-23 15:12] VITALS: TEMP 97.4; O2SAT 100
[2020-07-23 15:15] VITALS: BP 126/77
== END 2020-07-23 16:55 | disposition home or self-care (01) ==
LOC: ER 13:45
DX: S20.212A Contusion of left front wall of thorax, initial encounter (principal); M25.561 Pain in right knee; V28.4XXA Motorcycle driver injured in noncollision transport accident in traffic accident, initial encounter; Z88.0 Allergy status to penicillin
CPT/HCPCS: 70450; 72125; 71260; 74177; 96375; 96374; 99284; Q9967; J2405

== ENCOUNTER 2021-10-05 12:57 | Emergency (ER) | payer SELFPAY ==
[2021-10-05 13:46] LABS: Urine Blood Negative (Negative); Urine Glucose Negative (Negative); Urine Protein 1+ (Negative); Urine Specific Gravity >=1.030 (1.005-1.030); Urine pH 5.5 (5.0-7.0)
--- NOTE | 2021-10-05 14:07 | RAD REPORT ---
EXAM DESCRIPTION: US - Scrotum Testicles - 10/05/2021 1:52 pm CLINICAL HISTORY: Testicular pain COMPARISON: 2016 FINDINGS: Right testicle measures 3.5 x 2.2 x 2.8 centimeters. Echotexture is homogeneous. Normal bl ood flow Left testicle measures 3.5 x 2.2 x 2.7 centimeters. Echotexture is homogeneous. Normal blood flow The epididymides are normal in size and echotexture. Normal blood flow is seen. The patient has a palpable area along the right side of the penis. Two cystic areas are present with the largest measuring 7 millimeters. IMPRESSION: Two cystic areas within the right aspect of the penis. Largest measures 7 millimeters. F ollow-up ultrasound in 1 month recommended to assess stability/resolution
--- NOTE | 2021-10-05 14:13 | ER ---
Nurse's Notes [facility] Name: Nilson Chicas Age: 41 yrs Sex: Male : 1980 Arrival Date: 10/05/2021 Time: 13:01 Bed 9 Private MD: Diagnosis: Cystic areas on right side of penis Presentation: 10/05 13:05 Chief complaint: Patient states: he has a few painful "bumps" on his right testicle. ap3 patient states they are tender to the touch, and skin colored. Coronavirus screen: At this time, the client does not indicate any symptoms associated with coronavirus-19. Ebola Screen: No symptoms or risks identified at this time. Initial Sepsis Screen: Does the patient meet any 2 criteria? No. Patient's initial sepsis screen is negative. Does the patient have a suspected source of infection? No. Patient's initial sepsis screen is negative. Risk Assessment: Do you want to hurt yourself or someone else? Patient reports no desire to harm self or others. Onset of symptoms was October 04, 2021. 13:05 Method Of Arrival: Ambulatory ap3 13:05 Acuity: PA 3 ap3 Triage Assessment: 13:07 General: Appears in no apparent distress. Behavior is calm, cooperative. Pain: ap3 Complains of pain in groin. Neuro: Level of Consciousness is awake, alert, obeys commands, Oriented to person, place, time, situation, Gait is steady, Speech is normal. Cardiovascular: Patient's skin is warm and dry. Respiratory: Airway is patent Respiratory effort is even, unlabored, Respiratory pattern is regular, symmetrical. Derm:. Historical: - Allergies: 13:06 PENICILLINS; ap3 - Home Meds: 13:06 None [Active]; ap3 - PMHx: 13:06 Pancreatitis; ap3 - Immunization history:: Client reports having NOT received the Covid vaccine. - Social history:: Smoking status: Reported history of juuling and/or vaping. Patient uses alcohol, weekly. admits to "couple of beers" a day. Screenin:08 Abuse screen: Denies threats or abuse. Nutritional screening: No deficits noted. ap3 Tuberculosis screening: No symptoms or risk factors identified. Fall Risk None identified. Assessment: 13:15 Reassessment: No changes from previously documented assessment. General: Appears in no bh1 apparent distress. uncomfortable. General: Behavior is calm, cooperative, appropriate for age. Pain: Complains of pain in TESTICALS. Pain: Pain does not radiate. Pain currently is 6 out of 10 on a pain scale. Pain began 1 day ago. Cardiovascular: No deficits noted. Respiratory: No deficits noted. Reports. Vital Signs: 13:05 BP 124 / 91; Pulse 94; Resp 17; Temp 97.7; Pulse Ox 100% ; Weight 88.45 kg; Height 6 ap3 ft. 0 in. (182.88 cm); 14:16 BP 122 / 68; Pulse 76; Resp 18; Temp 98.3(O); Pulse Ox 100% on R/A; bh1 13:05 Body Mass Index 26.45 (88.45 kg, 182.88 cm) ap3 ED Course: 13:01 Patient arrived in ED. ja2 13:06 Rehana Georges FNP-C is [facility]. kb 13:06 Jacinto Hernandez MD is Attending Physician. kb 13:06 Triage completed. ap3 13:08 Arm band placed on right wrist. ap3 13:15 Deepthi Jones, BENNY is Primary Nurse. bh1 13:17 No apparent distress. Resting quietly. Awaiting ED provider evaluation. bh1 13:17 Patient has correct armband on for positive identification. bh1 13:17 Patient did not have IV access during this emergency room visit. bh1 13:17 No provider procedures requiring assistance completed. bh1 13:19 TESTICULAR EXAM BY JACKSON ZAPATA. bh1 13:45 US AT BEDSIDE. bh1 13:49 No apparent distress. Resting quietly. Awaiting radiology results. bh1 13:54 US Scrotum Testicles In Process Unspecified. EDMS Administered Medications: No medications were administered Medication: 13:17 VIS not applicable for this client. 1 Outcome: 14:13 Discharge ordered by . edilia 14:16 Discharged to home ambulatory. 1 14:16 Condition: good 14:16 Discharge instructions given to patient, Instructed on discharge instructions, follow up and referral plans. Demonstrated understanding of instructions, follow-up care. 14:17 Patient left the ED. [facility] Signatures: Dispatcher [employer] EDMS Rehana Georges FNP-C FNP-Ckb Prokisch, Amanda RN RN ap3 Ayesha Corona Barbara, RN RN bh1
--- NOTE | 2021-10-05 14:13 | EDPHYS ---
Physician Documentation [facility] Name: Nilson Chicas Age: 41 yrs Sex: Male : 1980 Arrival Date: 10/05/2021 Time: 13:01 Bed 9 Private MD: ED Physician Jacinto Hernandez HPI: 10/05 14:14 This 41 yrs old Male presents to ER via Ambulatory with complaints of Lumps on Groin. kb 14:14 The patient presents with lumps on penis. Onset: The symptoms/episode began/occurred kb yesterday. Modifying factors: The symptoms are alleviated by nothing, the symptoms are aggravated by nothing. Associated signs and symptoms: The patient has no apparent associated signs or symptoms. Severity of symptoms: At their worst the symptoms were mild, in the emergency department the symptoms are unchanged. The patient has not experienced similar symptoms in the past. The patient has not recently seen a physician. Pt reports lumps on penis that he noticed yesterday. Historical: - Allergies: 13:06 PENICILLINS; ap3 - Home Meds: 13:06 None [Active]; ap3 - PMHx: 13:06 Pancreatitis; ap3 - Immunization history:: Client reports having NOT received the Covid vaccine. - Social history:: Smoking status: Reported history of juuling and/or vaping. Patient uses alcohol, weekly. admits to "couple of beers" a day. ROS: 14:10 Constitutional: Negative for fever, chills, and weight loss. kb 14:10 : Positive for of the shaft of penis, "lumps". 14:10 All other systems are negative. Exam: 14:10 Constitutional: This is a well developed, well nourished patient who is awake, alert, kb and in no acute distress. Head/Face: Normocephalic, atraumatic. ENT: Moist Mucous membranes Respiratory: Respirations even and unlabored. No increased work of breathing. Talking in full sentences Skin: Warm, dry with normal turgor. Normal color. MS/ Extremity: Pulses equal, no cyanosis. Neurovascular intact. Full, normal range of motion. Neuro: Awake and alert, GCS 15, oriented to person, place, time, and situation. Moves all extremities. Normal gait. Psych: Awake, alert, with orientation to person, place and time. Behavior, mood, and affect are within normal limits. 14:10 : Male external genitalia: 2 small masses to right side of shaft of penis, no erythema, swelling, warmth noted. Vital Signs: 13:05 BP 124 / 91; Pulse 94; Resp 17; Temp 97.7; Pulse Ox 100% ; Weight 88.45 kg; Height 6 ap3 ft. 0 in. (182.88 cm); 14:16 BP 122 / 68; Pulse 76; Resp 18; Temp 98.3(O); Pulse Ox 100% on R/A; bh1 13:05 Body Mass Index 26.45 (88.45 kg, 182.88 cm) ap3 MDM: 13:06 Patient medically screened. kb 14:10 Data reviewed: vital signs, nurses notes. Data interpreted: Pulse oximetry: on room air kb is 100 %. Interpretation: normal. 14:12 Counseling: I had a detailed discussion with the patient and/or guardian regarding: the kb historical points, exam findings, and any diagnostic results supporting the discharge/admit diagnosis, lab results, radiology results, the need for outpatient follow up, a urologist, to return to the emergency department if symptoms worsen or persist or if there are any questions or concerns that arise at home. 10/05 13:46 Order name: Urine Dipstick-Ancillary; Complete Time: 13:47 EDFL 10/05 13:20 Order name: US Scrotum Testicles; Complete Time: 14:10 kb 10/05 13:20 Order name: Urine Dipstick-Ancillary (obtain specimen); Complete Time: 13:45 kb Administered Medications: No medications were administered Disposition Summary: 10/05/21 14:13 Discharge Ordered Location: Home kb Condition: Stable kb Diagnosis - Cystic areas on right side of penis kb Followup: kb - With: Emergency Department - When: As needed - Reason: Worsening of condition Followup: kb - With: Private Physician - When: 2 - 3 days - Reason: Recheck today's complaints, Continuance of care, Re-evaluation by your physician Discharge Instructions: - Discharge Summary Sheet kb Forms: - Medication Reconciliation Form kb - Thank You Letter kb - Antibiotic Education kb - Prescription Opioid Use kb Signatures: Dispatcher [employer] EDFL Rehana Georges, LORENA-C SURFACE LAY OUT TECHNICIAN-Ckb Prokisch, Niki, RN RN ap3
[2021-10-05 14:53] VITALS: O2SAT 100
[2021-10-05 14:57] VITALS: BP 122/68; TEMP 98.3
== END 2021-10-05 14:17 | disposition home or self-care (01) ==
LOC: ER 12:57
DX: N48.89 Other specified disorders of penis (principal); Z88.0 Allergy status to penicillin
CPT/HCPCS: 76870; 81003

== ENCOUNTER 2021-12-14 14:26 | Emergency (ER) | payer SELFPAY ==
--- NOTE | 2021-12-14 15:46 | RAD REPORT ---
EXAM DESCRIPTION: RAD - Elbow Left 3 View - 12/14/2021 3:38 pm CLINICAL HISTORY: elbow pain COMPARISON: Elbow Left 3 View dated 02/20/2020 FINDINGS: No fracture or dislocation seen. Moderate soft tissue swelling is seen about the olecranon which may indicate bursitis.
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
[2021-12-14 16:17] LABS: Absolute Lymphocytes (CBC) 0.8 K/uL (0.7-4.9); Lymphocytes % 14.4 % (15.3-44.8); MCV 87.9 fL (80-100); MPV 6.4 fL (7.6-11.3)
[2021-12-14 16:29] LABS: Potassium 3.7 mmol/L (3.5-5.1); Uric Acid 4.6 mg/dL (3.5-7.2)
[2021-12-14] MEDS ORDERED: KETOROLAC 30 MG/ML INJ ONE (16:50)
--- NOTE | 2021-12-14 17:42 | ER ---
Nurse's Notes [facility] Name: Nilson Chicas Age: 41 yrs Sex: Male : 1980 Arrival Date: 12/14/2021 Time: 14:28 Bed 30 Private MD: Diagnosis: Pain in left wrist;Olecranon bursitis, left elbow Presentation: 12/14 15:11 Chief complaint: Patient states: Pt reports left wrist, hand, elbow, shoulder pain that kb3 began spontaneously 1 month ago. Denies fall or injury. Coronavirus screen: Vaccine status: Patient reports being unvaccinated. Client denies travel out of the [place] in the last 14 days. Ebola Screen: Patient negative for fever greater than or equal to 101.5 degrees Fahrenheit, and additional compatible Ebola Virus Disease symptoms Patient denies exposure to infectious person. Patient denies travel to an Ebola-affected area in the 21 days before illness onset. No symptoms or risks identified at this time. Initial Sepsis Screen: Does the patient meet any 2 criteria? No. Patient's initial sepsis screen is negative. Does the patient have a suspected source of infection? No. Patient's initial sepsis screen is negative. Risk Assessment: Do you want to hurt yourself or someone else? Patient reports no desire to harm self or others. Onset of symptoms was November 13, 2021. 15:11 Method Of Arrival: Ambulatory 3 15:11 Acuity: PA 4 kb3 Triage Assessment: 15:13 General: Appears in no apparent distress. unkempt, Behavior is calm, cooperative. Pain: kb3 Complains of pain in anterior aspect of left shoulder, left bicep, left antecubital area, dorsal aspect of left forearm and left wrist Pain does not radiate. Pain currently is 10 out of 10 on a pain scale. Historical: - Allergies: 15:13 PENICILLINS; kb3 - Home Meds: 15:13 None [Active]; kb3 - PMHx: 15:13 Pancreatitis; kb3 - PSHx: 15:13 None; kb3 - Immunization history:: Adult Immunizations up to date, Client reports having NOT received the Covid vaccine. Last tetanus immunization: up to date. - Social history:: Smoking status: Reported history of juuling and/or vaping. Patient uses alcohol, occasionally. Screenin:43 Abuse screen: Denies threats or abuse. Denies injuries from another. Nutritional ld1 screening: No deficits noted. Tuberculosis screening: No symptoms or risk factors identified. Fall Risk None identified. Assessment: 16:43 General: Appears in no apparent distress. comfortable, Behavior is calm, cooperative, ld1 appropriate for age. Pain: Complains of pain in left arm Pain does not radiate. Pain currently is 6 out of 10 on a pain scale. Quality of pain is described as aching, throbbing, Pain began 1 month ago Is continuous. Neuro: Level of Consciousness is awake, alert, obeys commands, Oriented to person, place, time, situation. Cardiovascular: Capillary refill < 3 seconds Patient's skin is warm and dry. Respiratory: Airway is patent Respiratory effort is even, unlabored. GI: Abdomen is flat, non-distended. : No signs and/or symptoms were reported regarding the genitourinary system. EENT: No signs and/or symptoms were reported regarding the EENT system. Derm: No signs and/or symptoms reported regarding the dermatologic system. Musculoskeletal: Reports pain in left arm. 17:51 Reassessment: Patient appears in no apparent distress at this time. Patient and/or ld1 family updated on plan of care and expected duration. Pain level reassessed. Patient is alert, oriented x 3, equal unlabored respirations, skin warm/dry/pink. Vital Signs: 15:11 BP 115 / 93; Pulse 113; Resp 20; Temp 99.3; Pulse Ox 98% ; Weight 88.45 kg; Height 6 kb3 ft. 0 in. (182.88 cm); Pain 10/10; 16:43 BP 118 / 89; Pulse 106; Resp 20; Pulse Ox 99% on R/A; Pain 7/10; ld1 17:51 BP 117 / 86; Pulse 101; Resp 18; Pulse Ox 99% on R/A; Pain 2/10; ld1 15:11 Body Mass Index 26.45 (88.45 kg, 182.88 cm) kb3 ED Course: 14:28 Patient arrived in ED. mr 14:33 Brad Granados PA is PHCP. jmm 14:33 Ramesh Ayala DO is Attending Physician. jmm 15:13 Triage completed. kb3 15:13 Arm band placed on right wrist. kb3 15:40 Wrist Left (3 View) XRAY In Process Unspecified. EDMS 15:40 Elbow Left 3 View XRAY In Process Unspecified. EDMS 16:20 Inserted saline lock: 20 gauge in right antecubital area, using aseptic technique. zm Blood collected. 16:21 Uric Acid Sent. zm 16:21 CBC with Diff Sent. zm 16:21 BMP Sent. zm 16:39 Adali Stephenson, RN is Primary Nurse. ld1 16:43 Patient has correct armband on for positive identification. Placed in gown. Bed in low ld1 position. Call light in reach. Side rails up X2. school lunch monitor on. Pulse ox on. NIBP on. Door closed. Noise minimized. Warm blanket given. 16:43 No provider procedures requiring assistance completed. ld1 17:40 Ashwin Awan MD is Referral Physician. [facility] 17:52 IV discontinued, intact, bleeding controlled, No redness/swelling at site. ld1 Administered Medications: 16:43 Drug: Ketorolac 30 mg Route: IVP; Site: right antecubital; ld1 16:54 Follow up: Response: No adverse reaction ld1 Medication: 16:43 VIS not applicable for this client. ld1 Outcome: 17:41 Discharge ordered by . [facility] 17:52 Discharged to home ambulatory. ld1 17:52 Condition: stable 17:52 Discharge instructions given to patient, Instructed on discharge instructions, follow up and referral plans. medication usage, Demonstrated understanding of instructions, follow-up care, medications, Prescriptions given X 2. 17:52 Patient left the ED. ld1 Signatures: Dispatcher [employer] EDMS Brad Granados PA PA jmm Rivera, Mary mr Adali Stephenson, RN RN ld1 Mary Ann Rivera Kelly, RN RN kb3
--- NOTE | 2021-12-14 17:42 | EDPHYS ---
Physician Documentation [facility] Name: Nilson Chicas Age: 41 yrs Sex: Male : 1980 Arrival Date: 12/14/2021 Time: 14:28 Bed 30 Private MD: ED Physician Ramesh Ayala HPI: 12/14 15:17 This 41 yrs old Male presents to ER via Ambulatory with complaints of Arm Pain. jmm 15:17 The patient or guardian complains of injury, pain. Onset: The symptoms/episode jmm began/occurred gradually, 1 month(s) ago. Modifying factors: The symptoms are alleviated by nothing. the symptoms are aggravated by movement. Associated signs and symptoms: The patient has no apparent associated signs or symptoms, Pertinent positives: swelling, Pertinent negatives: fever. This is a 41-year-old male with history of pancreatitis and presents emerged department with complaints of progressively worsening left wrist pain which now ascends up to his elbow. Patient denies fever, denies any recent trauma. Patient states having a fall about a year ago.. Historical: - Allergies: 15:13 PENICILLINS; kb3 - Home Meds: 15:13 None [Active]; kb3 - PMHx: 15:13 Pancreatitis; kb3 - PSHx: 15:13 None; kb3 - Immunization history:: Adult Immunizations up to date, Client reports having NOT received the Covid vaccine. Last tetanus immunization: up to date. - Social history:: Smoking status: Reported history of juuling and/or vaping. Patient uses alcohol, occasionally. ROS: 15:17 Constitutional: Negative for fever, chills, and weight loss, Cardiovascular: Negative jmm for chest pain, palpitations, and edema, Respiratory: Negative for shortness of breath, cough, wheezing, and pleuritic chest pain. 15:17 MS/extremity: Positive for injury or acute deformity, pain. 15:17 All other systems are negative. Exam: 15:17 Constitutional: This is a well developed, well nourished patient who is awake, alert, jmm and in no acute distress. Head/Face: atraumatic. Eyes: EOMI, no conjunctival erythema appreciated ENT: Moist Mucus Membranes Neck: Trachea midline, Supple Chest/axilla: Normal chest wall appearance and motion. Cardiovascular: Regular rate and rhythm. No edema appreciated Respiratory: Normal respirations, no respiratory distress appreciated Abdomen/GI: Non distended Back: Normal ROM Skin: General appearance color normal 15:17 Musculoskeletal/extremity: ROM: intact in all extremities, Left wrist is diffusely tender to palpation, no obvious deformity appreciated, full radial pulse, full basket maker strength. Mild swelling noted to the left olecranon region, compartments are soft, neurovascular intact. 15:17 Skin: Appearance: Color: normal in color. 15:17 Neuro: Orientation: is normal, Mentation: is normal, Memory: is normal. 15:17 Psych: Behavior/mood is pleasant, cooperative. Vital Signs: 15:11 BP 115 / 93; Pulse 113; Resp 20; Temp 99.3; Pulse Ox 98% ; Weight 88.45 kg; Height 6 kb3 ft. 0 in. (182.88 cm); Pain 10/10; 16:43 BP 118 / 89; Pulse 106; Resp 20; Pulse Ox 99% on R/A; Pain 7/10; ld1 17:51 BP 117 / 86; Pulse 101; Resp 18; Pulse Ox 99% on R/A; Pain 2/10; ld1 15:11 Body Mass Index 26.45 (88.45 kg, 182.88 cm) kb3 MDM: 15:17 Patient medically screened. katerine 17:39 Data reviewed: vital signs, nurses notes. Counseling: I had a detailed discussion with katerine the patient and/or guardian regarding: the historical points, exam findings, and any diagnostic results supporting the discharge/admit diagnosis, lab results, radiology results, the need for outpatient follow up, to return to the emergency department if symptoms worsen or persist or if there are any questions or concerns that arise at home. ED course: Revealed previous fracture which the patient states most likely occurred 4 months ago with a fall. Patient states he did not get it evaluated. Patient is advised to follow with orthopedics for further evaluation. X-ray finding was consistent with olecranon bursitis.. 12/14 15:18 Order name: CBC with Diff; Complete Time: 16:21 [facility] 12/14 15:18 Order name: BMP; Complete Time: 16:31 [facility] 12/14 15:18 Order name: Uric Acid; Complete Time: 16: [facility] 12/14 15:18 Order name: Wrist Left (3 View) XRAY; Complete Time: 15:48 [facility] 12/14 15:18 Order name: Elbow Left 3 View XRAY; Complete Time: 15:48 [facility] 12/14 15:18 Order name: Saline Lock; Complete Time: 16:21 [facility] Administered Medications: 16:43 Drug: Ketorolac 30 mg Route: IVP; Site: right antecubital; ld1 16:54 Follow up: Response: No adverse reaction ld1 Disposition: 23:04 Co-signature as Attending Physician, Ramesh Ayala DO I agree with the assessment and ms3 plan of care. Disposition Summary: 12/14/21 17:41 Discharge Ordered Location: Home [facility] Condition: Stable [facility] Diagnosis - Pain in left wrist jm - Olecranon bursitis, left elbow [facility] Followup: [facility] - With: Ashwin Awan MD - When: 2 - 3 days - Reason: Recheck today's complaints, Continuance of care, Re-evaluation by your physician Discharge Instructions: - Discharge Summary Sheet [facility] - Joint Pain [facility] - Bursitis [facility] - Elbow Bursitis [facility] Forms: - Medication Reconciliation Form [facility] - Thank You Letter [facility] - Antibiotic Education [facility] - Prescription Opioid Use [facility] Prescriptions: - Prednisone 20 mg Oral Tablet - take 3 tablets by ORAL route once daily for 5 days; 15 tablet; Refills: 0, [facility] Product Selection Permitted - orphenadrine citrate 100 mg Oral Tablet Sustained Release - take 1 tablet by ORAL route 2 times per day As needed; 20 tablet; Refills: 0, [facility] Product Selection Permitted Signatures: Dispatcher [employer] Brad Vivar PA PA Ramesh Noonan DO DO ms3 Adali Stephenson, RN RN ld1 Essie Koch, RN RN kb3
[2021-12-14 19:05] VITALS: TEMP 99.3
[2021-12-14 19:14] VITALS: O2SAT 99
[2021-12-14 19:17] VITALS: BP 117/86
== END 2021-12-14 17:52 | disposition home or self-care (01) ==
LOC: ER 14:26
DX: M70.22 Olecranon bursitis, left elbow (principal); Z88.0 Allergy status to penicillin
CPT/HCPCS: 36415; 80048; 84550; 85025; 96374; 99284

== ENCOUNTER 2023-03-02 20:01 | Emergency (ER) | payer SELFPAY ==
--- NOTE | 2023-03-02 20:23 | ER ---
Nurse's Notes [facility] Name: Nilson Chicas Age: 42 yrs Sex: Male : 1980 Arrival Date: 03/02/2023 Time: 20:01 Bed 10 Private MD: Diagnosis: Periapical abscess without sinus Presentation: 03/02 20:15 Chief complaint: Patient states: pain on the left upper teeth x 1 week. because of bad rv tooth. noticed drainage today. denies fever. Coronavirus screen: At this time, the client does not indicate any symptoms associated with coronavirus-19. Ebola Screen: No symptoms or risks identified at this time. Initial Sepsis Screen: Does the patient meet any 2 criteria? No. Patient's initial sepsis screen is negative. Does the patient have a suspected source of infection? No. Patient's initial sepsis screen is negative. Risk Assessment: Do you want to hurt yourself or someone else? Patient reports no desire to harm self or others. Onset of symptoms was March 02, 2023. 20:15 Method Of Arrival: Ambulatory rv 20:15 Acuity: PA 4 rv Triage Assessment: 20:16 General: Appears uncomfortable, Behavior is calm, cooperative. Pain: Complains of pain rv in mouth. EENT: Reports pain in mouth. Neuro: Level of Consciousness is awake, alert, obeys commands, Oriented to person, place, time, situation. Cardiovascular: Capillary refill < 3 seconds Patient's skin is warm and dry. Respiratory: Airway is patent Respiratory effort is even, unlabored. Derm: Skin is intact. Historical: - Allergies: 20:16 PENICILLINS; rv - PMHx: 20:16 Pancreatitis; rv - PSHx: 20:16 None; rv - Immunization history:: Adult Immunizations up to date. - Social history:: Smoking status: Reported history of juuling and/or vaping. Screenin:37 [facility] ED Fall Risk Assessment (Adult) History of falling in the last 3 months, bp including since admission No falls in past 3 months (0 pts). Abuse screen: Denies threats or abuse. Denies injuries from another. Nutritional screening: No deficits noted. Tuberculosis screening: No symptoms or risk factors identified. Vital Signs: 20:15 BP 140 / 94; Pulse 94; Resp 18; Temp 98; Pulse Ox 99% ; Weight 92.99 kg; Height 6 ft. 0 rv in. ; 20:15 Body Mass Index 27.80 (92.99 kg, 182.88 cm) rv ED Course: 20:03 Patient arrived in ED. jj6 20:08 Rehana Georges FNP-C is [facility]. kb 20:08 Ramesh Ayala DO is Attending Physician. kb 20:16 Triage completed. rv 20:16 Arm band placed on right wrist. rv 20:37 Patient has correct armband on for positive identification. bp 20:37 No provider procedures requiring assistance completed. Patient did not have IV access bp during this emergency room visit. Administered Medications: 20:30 Drug: Clindamycin PO 300 mg PO once Route: PO; pf1 20:38 Follow up: Response: No adverse reaction bp 20:30 Drug: [place] PO 10 mg-325 mg 1 tabs PO once Route: PO; pf1 20:38 Follow up: Response: No adverse reaction bp Medication: 20:37 VIS not applicable for this client. bp Outcome: 20:22 Discharge ordered by . kb 20:37 Discharged to home ambulatory, bp 20:37 Condition: stable 20:37 Discharge instructions given to patient, Instructed on discharge instructions, follow up and referral plans. medication usage, Demonstrated understanding of instructions, follow-up care, medications, Prescriptions given X 1, 20:38 Patient left the ED. bp Signatures: Rehana Georges FNP-C FNP-Ckb Peltier, Brian, RN RN Hudson Ferguson RN RN Alaina Rider jj6 Odalis Santos RN RN pf1
--- NOTE | 2023-03-02 20:23 | EDPHYS ---
Physician Documentation [facility] Name: Nilson Chicas Age: 42 yrs Sex: Male : 1980 Arrival Date: 03/02/2023 Time: 20:01 Bed 10 Private MD: ED Physician Ramesh Ayala HPI: 03/02 22:13 This 42 yrs old Male presents to ER via Ambulatory with complaints of Toothache, Jaw kb Pain. 22:13 Patient is a 42-year-old male who presents for toothache that started a few weeks ago kb but is worse today and he now has drainage from gums. Denies fever. Historical: - Allergies: 20:16 PENICILLINS; rv - PMHx: 20:16 Pancreatitis; rv - PSHx: 20:16 None; rv - Immunization history:: Adult Immunizations up to date. - Social history:: Smoking status: Reported history of juuling and/or vaping. ROS: 22:12 Constitutional: Negative for fever, chills, and weight loss, kb 22:12 ENT: Positive for dental pain, 22:12 All other systems are negative, Exam: 22:12 Constitutional: This is a well developed, well nourished patient who is awake, alert, kb and in no acute distress. Head/Face: Normocephalic, atraumatic. Cardiovascular: Regular rate Respiratory: Respirations even and unlabored. No increased work of breathing. Talking in full sentences Skin: Warm, dry with normal turgor. Normal color. MS/ Extremity: Pulses equal, no cyanosis. Neurovascular intact. Full, normal range of motion. Neuro: Awake and alert, GCS 15, oriented to person, place, time, and situation. Moves all extremities. Normal gait. 22:12 ENT: Dental exam: dental caries, that is moderate, diffusely, gum swelling, that is mild, specifically in the upper left second bicuspid (#13) and upper left first molar (#14), pain, Vital Signs: 20:15 BP 140 / 94; Pulse 94; Resp 18; Temp 98; Pulse Ox 99% ; Weight 92.99 kg; Height 6 ft. 0 rv in. ; 20:15 Body Mass Index 27.80 (92.99 kg, 182.88 cm) rv MDM: 20:09 Patient medically screened. kb 22:11 Differential diagnosis: dental caries, gingivitis, dental abscess, pericoronitis. Data kb reviewed: vital signs, nurses notes. Counseling: I had a detailed discussion with the patient and/or guardian regarding the historical points, exam findings, and any diagnostic results supporting the discharge/admit diagnosis, the need for outpatient follow up, a dentist, to return to the emergency department if symptoms worsen or persist or if there are any questions or concerns that arise at home. Administered Medications: 20:30 Drug: Clindamycin PO 300 mg PO once Route: PO; pf1 20:38 Follow up: Response: No adverse reaction bp 20:30 Drug: [place] PO 10 mg-325 mg 1 tabs PO once Route: PO; pf1 20:38 Follow up: Response: No adverse reaction bp Disposition: 21:04 I was immediately available on-site in the Emergency Department for consultation in the vt3 care of the patient. Disposition Summary: 03/02/23 20:22 Discharge Ordered Notes: Location: Home kb Condition: Stable kb Diagnosis - Periapical abscess without sinus kb Followup: kb - With: Emergency Department - When: As needed - Reason: Worsening of condition Followup: kb - With: Private Physician - When: 2 - 3 days - Reason: Recheck today's complaints, Continuance of care, Re-evaluation by your physician Discharge Instructions: - Discharge Summary Sheet kb - Dental Abscess, [id number] kb Forms: - Medication Reconciliation Form kb - Thank You Letter kb - Antibiotic Education kb - Prescription Opioid Use kb - Patient Portal Instructions kb - Leadership Thank You Letter kb Prescriptions: - Clindamycin HCl 300 mg Oral Capsule - take 1 capsule ORAL route every 6 hours for 10 days; 40 capsule; Refills: 0, kb Product Selection Permitted Addendum: 03/05/2023 07:28 I was immediately available on-site in the Emergency Department for consultation in the [facility] care of the patient. Signatures: Rehana Georges, CANDICE CARRILLO-Hudson Williamson, RN RN Ramesh Ayala DO DO ms3 Odalis Santos RN RN pf1 Jethro Grimaldo RN bp
[2023-03-02] MEDS ORDERED: HYDROCODONE/APAP 10/325 TAB ONE (20:42)
[2023-03-02 21:42] VITALS: BP 140/94; TEMP 98; O2SAT 99
== END 2023-03-02 20:38 | disposition home or self-care (01) ==
LOC: ER 20:01
DX: K04.7 Periapical abscess without sinus (principal)
CPT/HCPCS: 99283

== ENCOUNTER → 2023-06-04 | Emergency (ER) | payer SELFPAY ==
[~2023-06-04] MED LIST: ACETAMINOPHEN 500 MG TAB ONE; IBUPROFEN 400 MG TAB ONE; SMZ./TMP. 800/160 MG TABLET ONE
--- NOTE | 2023-06-04 23:10 | EDPHYS ---
Physician Documentation [facility] Name: Nilson Chicas Age: 42 yrs Sex: Male : 1980 Arrival Date: 06/04/2023 Time: 22:44 Bed 13 Private MD: ED Physician Patrick Rudd HPI: 06/04 23:11 This 42 yrs old Male presents to ER via Ambulatory with complaints of Right ec2 foot infection. 23:11 Patient arrives today for evaluation of skin breakdown and erythema to the dorsum of ec2 the right foot. Patient reports that he had some athlete's foot, has been constantly scratching it and now has noticed some redness and swelling to the foot. Patient reports no fevers or chills, no nausea or vomiting, no diarrhea symptoms, no issues with p.o. intake, no other concerns. Reports no significant medical problems. Reports otherwise systemically well with no other issues or concerns.. Historical: - Allergies: 22:53 PENICILLINS; hb - Home Meds: 22:53 None [Active]; hb - PMHx: 22:53 Pancreatitis; hb - PSHx: 22:53 None; hb - Immunization history:: Adult Immunizations up to date. - Social history:: Smoking status: Patient denies any tobacco usage or history of. ROS: 23:11 Constitutional: as per hpi ec2 Exam: 23:11 Constitutional: GEN: NAD Head: atraumatic Eyes: EOMI Ears: External ears are ec2 normal. CV: Tachycardia LUNGS: no respiratory distress ABD: non-distended SKIN: Erythema noted to the dorsum of the foot. No significant swelling, eccentrically to the dorsum of the foot, no ankle extension, no calf swelling, good range of motion, DP intact, neurostatus intact as well. MSK: no evidence of trauma NEURO: moves all extremities equally Vital Signs: 22:51 BP 144 / 88; Pulse 105; Resp 18; Temp 98.1(TE); Pulse Ox 100% on R/A; Weight 83.91 kg; hb Height 6 ft. 0 in. ; Pain 7/10; 22:51 Body Mass Index 25.09 (83.91 kg, 182.88 cm) hb 22:51 Pain Scale: Adult hb MDM: 23:10 Patient medically screened. ec2 23:11 Data reviewed: vital signs. ED course: Patient arrives today for skin irritation and ec2 breakdown to the right foot. Examination remarkable for skin findings as noted above. Presentation consistent with cellulitis. Patient otherwise well-appearing in no acute distress, denies any systemic symptoms, accordingly will defer any lab work at this time such as CBC or BMP. Additionally patient without any trauma to indicate obtain an x-ray. Will start patient on antibiotics and follow with primary care doctor. Patient instructed on strict return precautions.. Administered Medications: 23:34 Drug: Trimethoprim-Sulfamethoxazole PO (160 mg-800 mg (DS) 1 tablet PO once Route: PO; jj7 23:35 Follow up: Response: No adverse reaction jj7 23:34 Drug: Acetaminophen PO 1000 mg PO once Route: PO; jj7 23:35 Follow up: Response: No adverse reaction jj7 23:34 Drug: Ibuprofen PO 800 mg PO once Route: PO; jj7 23:35 Follow up: Response: No adverse reaction jj7 Disposition Summary: 06/04/23 23:10 Discharge Ordered Notes: Location: Home ec2 Condition: Stable ec2 Diagnosis - Cellulitis of other sites ec2 Followup: ec2 - With: Private Physician - When: - Reason: Re-evaluation by your physician Discharge Instructions: - Discharge Summary Sheet ec2 - Cellulitis, Adult, [id number] ec2 Forms: - Medication Reconciliation Form ec2 - Thank You Letter ec2 - Antibiotic Education ec2 - Prescription Opioid Use ec2 - Patient Portal Instructions ec2 - Leadership Thank You Letter ec2 Prescriptions: - Bactrim DS 800-160 mg Oral Tablet - take 1 tablet ORAL route every 12 hours for 7 days; 14 tablet; Refills: 0, ec2 Product Selection Permitted Signatures: Tara Mahmood RN RN Lokesh Coyne RN RN jj7 Patrick Rudd MD MD ec2
--- NOTE | 2023-06-04 23:10 | ER ---
Nurse's Notes [facility] Name: Nilson Chicas Age: 42 yrs Sex: Male : 1980 Arrival Date: 06/04/2023 Time: 22:44 Bed 13 Private MD: Diagnosis: Cellulitis of other sites Presentation: 06/04 22:51 Chief complaint: Right foot pain and swelling x 1 week. Coronavirus screen: At this hb time, the client does not indicate any symptoms associated with coronavirus-19. Ebola Screen: No symptoms or risks identified at this time. Initial Sepsis Screen: Does the patient meet any 2 criteria? HR > 90 bpm. No. Patient's initial sepsis screen is negative. Does the patient have a suspected source of infection? No. Patient's initial sepsis screen is negative. Risk Assessment: Do you want to hurt yourself or someone else? Patient reports no desire to harm self or others. Onset of symptoms was May 28, 2023. 22:51 Method Of Arrival: Ambulatory hb 22:51 Acuity: PA 3 hb Triage Assessment: 22:53 General: Appears in no apparent distress. Behavior is calm, cooperative. Pain: Pain hb currently is 7 out of 10 on a pain scale. Neuro: Level of Consciousness is awake, alert, obeys commands, Oriented to person, place, time, situation. Cardiovascular: Patient's skin is warm and dry. Respiratory: Respiratory effort is even, unlabored, Respiratory pattern is regular, symmetrical. Musculoskeletal: Reports right foot pain and swelling. Historical: - Allergies: 22:53 PENICILLINS; hb - Home Meds: 22:53 None [Active]; hb - PMHx: 22:53 Pancreatitis; hb - PSHx: 22:53 None; hb - Immunization history:: Adult Immunizations up to date. - Social history:: Smoking status: Patient denies any tobacco usage or history of. Screenin:20 [facility] ED Fall Risk Assessment (Adult) History of falling in the last 3 months, jj7 including since admission No falls in past 3 months (0 pts) Confusion or Disorientation No (0 pts) Intoxicated or Sedated No (0 pts) Impaired Gait No (0 pts) Mobility Assist Device Used No (0 pt) Altered Elimination No (0 pt) Score/Fall Risk Level 0 - 2 = Low Risk Oriented to surroundings, Maintained a safe environment, Educated pt \T\ family on fall prevention, incl call for assistance when getting out of bed. Abuse screen: Denies threats or abuse. Nutritional screening: No deficits noted. Tuberculosis screening: No symptoms or risk factors identified. Assessment: 23:20 General: Appears in no apparent distress. comfortable, Behavior is calm, cooperative, jj7 appropriate for age. Derm: Skin is intact, Skin is pink, warm \T\ dry. red, SLIGHT REDNESS NOTED TO RIGHT MIDDLE TOE. Vital Signs: 22:51 BP 144 / 88; Pulse 105; Resp 18; Temp 98.1(TE); Pulse Ox 100% on R/A; Weight 83.91 kg; hb Height 6 ft. 0 in. ; Pain 7/10; 22:51 Body Mass Index 25.09 (83.91 kg, 182.88 cm) hb 22:51 Pain Scale: Adult hb ED Course: 22:47 Patient arrived in ED. im 22:53 Triage completed. hb 22:53 Patrick Rudd MD is Attending Physician. ec2 22:53 Arm band placed on. hb 23:20 Patient has correct armband on for positive identification. Bed in low position. Call jj7 light in reach. 23:20 No provider procedures requiring assistance completed. Patient did not have IV access jj7 during this emergency room visit. Administered Medications: 23:34 Drug: Trimethoprim-Sulfamethoxazole PO (160 mg-800 mg (DS) 1 tablet PO once Route: PO; jj7 23:35 Follow up: Response: No adverse reaction jj7 23:34 Drug: Acetaminophen PO 1000 mg PO once Route: PO; jj7 23:35 Follow up: Response: No adverse reaction jj7 23:34 Drug: Ibuprofen PO 800 mg PO once Route: PO; jj7 23:35 Follow up: Response: No adverse reaction jj7 Medication: 23:20 VIS not applicable for this client. jj7 Outcome: 23:10 Discharge ordered by . ec2 23:35 Discharged to home ambulatory, with significant other, jj7 23:35 Condition: good 23:35 Discharge instructions given to patient, Instructed on discharge instructions, medication usage, Demonstrated understanding of instructions, medications, Prescriptions given X 1, 23:36 Patient left the ED. jj7 Signatures: Tara Mahmood RN RN hb Lokesh Deleon RN RN jj7 Prachi Meyer Edwin, MD MD ec2
[2023-06-05 00:30] VITALS: BP 144/88; TEMP 98.1; O2SAT 100
== END ==
LOC: ER 22:44
DX: L03.115 Cellulitis of right lower limb (principal)
CPT/HCPCS: 99283

== ENCOUNTER 2023-12-09 20:03 | Emergency (ER) | payer SELFPAY ==
[2023-12-09] MEDS ORDERED: ACETAMINOPHEN 500 MG TAB ONE (20:13)
[2023-12-09] MEDS ORDERED: KETOROLAC 30 MG/ML INJ ONE (20:13)
--- NOTE | 2023-12-09 20:37 | RAD REPORT ---
EXAM DESCRIPTION: RAD - Knee Left 2 View - 12/09/2023 8:28 pm CLINICAL HISTORY: soft tissue injury COMPARISON: <Comparisons> FINDINGS: No fracture, dislocation or joint effusion. No radiopaque foreign body seen.
--- NOTE | 2023-12-09 20:42 | EDPHYS ---
Physician Documentation [facility] Name: Nilson Chicas Age: 43 yrs Sex: Male : 1980 Arrival Date: 12/09/2023 Time: 20:03 Bed 3 Private MD: ED Physician Patrick Rudd HPI: 12/08 20:37 This 43 yrs old Male presents to ER via Stretcher with complaints of Stab ec2 Wound To Leg. 20:37 Patient arrives today for evaluation after self-inflicted accidental injury to the left ec2 anterior distal thigh. Patient accidentally cut himself with a chainsaw. Up-to-date on tetanus status. Patient applied a wrap to it. . Historical: - Allergies: 20:20 PENICILLINS; al5 - PMHx: 20:20 Pancreatitis; al5 - Immunization history: Last tetanus immunization: - up to date. - Infectious Disease History:: Denies. - Social history:: Smoking status: Smoking status: unknown. ROS: 20:37 Constitutional: as per hpi ec2 Exam: 20:37 Constitutional: GEN: NAD Head: atraumatic Eyes: EOMI Ears: External ears are ec2 normal. CV: regular rate LUNGS: no respiratory distress ABD: non-distended SKIN: 2 small linear lacerations approximately 1 to 2 cm in size on the anterior distal tibia, no significant depth when probed with a blunt tip MSK: no deformities Vital Signs: 20:17 BP 124 / 84; Pulse 108; Resp 18; Temp 98; Pulse Ox 100% ; Weight 86.18 kg; Height 6 ft. al5 0 in. ; Pain 5/10; 20:57 BP 124 / 84; Pulse 69; Resp 17; Temp 98; Pulse Ox 100% ; Pain 0/10; bm8 20:17 Body Mass Index 25.77 (86.18 kg, 182.88 cm) al5 20:17 Pain Scale: Adult al5 20:57 Pain Scale: Adult bm8 [place] Score: 20:17 Eye Response: spontaneous(4). Motor Response: obeys commands(6). Verbal Response: al5 oriented(5). Total: 15. 20:57 Eye Response: spontaneous(4). Motor Response: obeys commands(6). Verbal Response: bm8 oriented(5). Total: 15. Trauma Score (Adult): 20:17 Eye Response: spontaneous(1); Verbal Response: oriented(1); Motor Response: obeys al5 commands(2); Systolic BP: > 89 mm Hg(4); Respiratory Rate: 10 to 29 per min(4); Rodriguez Score: 15; Trauma Score: 12 Laceration: 21:27 Wound Repair of 1cm ( 0.4in ) subcutaneous laceration to left leg. Distal ec2 neuro/vascular/tendon intact. Wound prep: Moderate cleansing with betadine by me. Skin closed with 2 1-0 Bety using staple gun. Patient tolerated well. 21:28 Wound Repair of 1.5cm ( 0.6in ) subcutaneous laceration to left leg. Distal ec2 neuro/vascular/tendon intact. Skin closed with 2 1-0 [place] using staple gun. Patient tolerated well. MDM: 20:16 Patient medically screened. ec2 20:37 Data reviewed: vital signs. ec2 20:40 ED course: Patient arrives today after an accidental self-inflicted injury to the left ec2 anterior thigh with superficial cuts. I cleaned the wound at bedside and probed it as well, no significant depth to it, less than half a centimeter laceration and depth. I repaired the laceration with bety x 4 without issue. Will x-ray obtained, independently reviewed and interpreted by me, shows no bony fracture. Will discharge home. Return precautions given. Patient is up-to-date on his tetanus status. Does not require update. . 12/08 20:16 Order name: Knee Left 2 View XRAY; Complete Time: 20:37 ec2 Administered Medications: 20:19 Drug: Acetaminophen PO 1000 mg PO once Route: PO; al5 20:59 Follow up: Response: No adverse reaction bm8 20:19 Drug: Ketorolac IVP 15 mg IVP once Route: IVP; Site: right antecubital; al5 20:59 Follow up: Response: No adverse reaction bm8 Disposition Summary: 12/09/23 20:41 Discharge Ordered Notes: You need to have your bety removed in 7-10 days. Location: Home ec2 Condition: Stable ec2 Diagnosis - Laceration without foreign body, left knee ec2 Followup: ec2 - With: Private Physician - When: - Reason: Re-evaluation by your physician Discharge Instructions: - Discharge Summary Sheet ec2 - Laceration Care, Adult, [id number] ec2 Forms: - Medication Reconciliation Form ec2 - Antibiotic Education ec2 - Prescription Opioid Use ec2 - Patient Portal Instructions ec2 - Leadership Thank You Letter ec2 Signatures: Dispatcher [employer] Patrick Reynoso MD MD ec2 Gwyn Garcia RN RN bm8 Niki Moore RN RN al5
--- NOTE | 2023-12-09 20:42 | ER ---
Nurse's Notes [facility] Name: Nilson Chicas Age: 43 yrs Sex: Male : 1980 Arrival Date: 12/09/2023 Time: 20:03 Bed 3 Private MD: Diagnosis: Laceration without foreign body, left knee Presentation: 12/08 20:10 Chief complaint: Patient states: was using chainsaw and accidentally cut L leg about al5 20-25 minutes ago. Care prior to arrival: None. Mechanism of Injury: Laceration sustained. Trauma event details: Injury occurred in the [facility], Injury occurred: at home. Injury occurred: December 09, 2023 Injury occurred at: 19:48. 20:10 Acuity: PA 2 al5 20:10 Method Of Arrival: Stretcher al5 20:18 Coronavirus screen: At this time, the client does not indicate any symptoms associated al5 with coronavirus-19. Ebola Screen: No symptoms or risks identified at this time. Initial Sepsis Screen: Does the patient meet any 2 criteria? No. Patient's initial sepsis screen is negative. Does the patient have a suspected source of infection? No. Patient's initial sepsis screen is negative. Risk Assessment: Do you want to hurt yourself or someone else? Patient reports no desire to harm self or others. Onset of symptoms was December 09, 2023. Triage Assessment: 20:16 General: see trauma assessment. al5 Historical: - Allergies: 20:20 PENICILLINS; al5 - PMHx: 20:20 Pancreatitis; al5 - Immunization history: Last tetanus immunization: - up to date. - Infectious Disease History:: Denies. - Social history:: Smoking status: Smoking status: unknown. Screenin:16 Abuse screen: Denies threats or abuse. Denies injuries from another. Tuberculosis al5 screening: No symptoms or risk factors identified. 20:19 [facility] ED Fall Risk Assessment (Adult) History of falling in the last 3 months, al5 including since admission No falls in past 3 months (0 pts) Confusion or Disorientation No (0 pts) Intoxicated or Sedated No (0 pts) Impaired Gait No (0 pts) Mobility Assist Device Used No (0 pt) Altered Elimination No (0 pt) Score/Fall Risk Level 0 - 2 = Low Risk Oriented to surroundings, Maintained a safe environment, Hourly rounding (assess needs \T\ fall precautionary measures) done. Nutritional screening: No deficits noted. Primary Survey: 20:14 NO uncontrolled hemorrhage observed. A: The client is awake and alert. The airway is al5 patent. The client is alert. Airway: patent. Breathing/Chest: Spontaneous respiratory effort, equal unlabored respirations, breath sounds clear bilaterally, regular pattern, symmetrical chest rise and fall. Respiratory effort: spontaneous, unlabored, Respiratory pattern: regular. Circulation: No external hemorrhage present. Regular and strong central pulse, skin warm/dry/normal color. bleeding to leg controlled by tourniquet currently being assessed by MD at this time.. Disability Pupils are equal, round, reactive to light and accommodation. Client is alert. Exposure/Environment: All clothing and personal items were removed. Forensic evidence collection is not deemed to be indicated at this time. Items placed in patient belonging bag. Obvious injury(ies) are noted at this time: laceration to L upper leg by chainsaw, wounds superficial with mild bleeding A warming method has been applied: A warm blanket has been provided to the patient. 20:18 Reassessment Breathing:. al5 Secondary Survey: 20:15 HEENT: No deficits noted. Gastrointestinal: No deficits noted. Gastrointestinal: al5 Abdomen is soft, non-distended. : No deficits noted. : No signs and/or symptoms were reported regarding the genitourinary system. Musculoskeletal: No deficits noted. No signs and/or symptoms reported regarding the musculoskeletal system. Assessment: 20:12 General: Appears in no apparent distress. Behavior is calm, cooperative. Pain: al5 Complains of pain in left leg. Neuro: Level of Consciousness is awake, alert, obeys commands, Oriented to person, place, time, situation. EENT: No signs and/or symptoms were reported regarding the EENT system. Cardiovascular: Capillary refill < 3 seconds Patient's skin is warm and dry. Respiratory: Airway is patent Respiratory effort is even, unlabored, Respiratory pattern is regular, symmetrical. GI: No signs and/or symptoms were reported involving the gastrointestinal system. : No signs and/or symptoms were reported regarding the genitourinary system. Derm: Wound noted left quadriceps Wound is 2 lacerations to L upper leg by chainsaw. wounds clean, superficial, some bleeding. one wound 1/2 inch, other wound about an inch long. Musculoskeletal: No signs and/or symptoms reported regarding the musculoskeletal system. Injury Description: Laceration sustained to left quadriceps is clean, superficial, 0.5 to 2.5 cm long, 2.6 to 7.5 cm long, bleeding mildly was sustained less than 30 minutes ago. a small amount of bleeding noted at this time. 20:57 Reassessment: Patient appears in no apparent distress at this time. Patient and/or bm8 family updated on plan of care and expected duration. Pain level reassessed. Patient is alert, oriented x 3, equal unlabored respirations, skin warm/dry/pink. wound dressed with 4x4 and kerlix, secured with coban. Wound care education given verbally and written instructions. Patient denies pain at this time. Patient states feeling better. Patient states symptoms have improved. Vital Signs: 20:17 BP 124 / 84; Pulse 108; Resp 18; Temp 98; Pulse Ox 100% ; Weight 86.18 kg; Height 6 ft. al5 0 in. ; Pain 5/10; 20:57 BP 124 / 84; Pulse 69; Resp 17; Temp 98; Pulse Ox 100% ; Pain 0/10; bm8 20:17 Body Mass Index 25.77 (86.18 kg, 182.88 cm) al5 20:17 Pain Scale: Adult al5 20:57 Pain Scale: Adult bm8 [place] Coma Score: 20:17 Eye Response: spontaneous(4). Motor Response: obeys commands(6). Verbal Response: al5 oriented(5). Total: 15. 20:57 Eye Response: spontaneous(4). Motor Response: obeys commands(6). Verbal Response: bm8 oriented(5). Total: 15. Trauma Score (Adult): 20:17 Eye Response: spontaneous(1); Verbal Response: oriented(1); Motor Response: obeys al5 commands(2); Systolic BP: > 89 mm Hg(4); Respiratory Rate: 10 to 29 per min(4); Rodriguez Score: 15; Trauma Score: 12 ED Course: 20:08 Patient arrived in ED. im 20:09 Niki Moore, RN is Primary Nurse. al5 20:12 Triage completed. al5 20:14 Inserted saline lock: 20 gauge in right antecubital area, using aseptic technique. vc1 Blood collected. Flushed with 10 mL NS. 20:16 Patrick Rudd MD is Attending Physician. ec2 20:16 Patient has correct armband on for positive identification. Bed in low position. Call al5 light in reach. Side rails up X 1. 20:16 Placed in gown. al5 20:18 Provided Education on: trauma care. al5 20:19 Arm band placed on right wrist. al5 20:20 Assist provider with laceration repair on left quadriceps that was 2.5 cm. or less al5 using raven. Set up tray. Performed by Patrick Rudd MD Dressed with 4X4s, Kerlix, Patient tolerated well. 20:21 Patient maintains SpO2 saturation greater than 95% on room air. Thermoregulation: warm al5 blanket given to patient. 20:30 Knee Left 2 View XRAY In Process Unspecified. EDMS 20:57 IV discontinued, intact, bleeding controlled, No redness/swelling at site. Pressure bm8 dressing applied. 20:57 Client placed on continuous cardiac and pulse oximetry monitoring. NIBP monitoring bm8 applied. quality assurance monitor body on. Pulse ox on. NIBP on. Door closed. Noise minimized. Warm blanket given. Pillow given. Verbal reassurance given. Head of bed elevated. Administered Medications: 20:19 Drug: Acetaminophen PO 1000 mg PO once Route: PO; al5 20:59 Follow up: Response: No adverse reaction bm8 20:19 Drug: Ketorolac IVP 15 mg IVP once Route: IVP; Site: right antecubital; al5 20:59 Follow up: Response: No adverse reaction bm8 Medication: 20:17 VIS not applicable for this client. al5 Intake: 20:59 PO: 60ml (Water); Total: 60ml. bm8 Output: 20:59 Urine: 0ml; Total: 0ml. bm8 Outcome: 20:41 Discharge ordered by . ec2 20:57 Discharged to home ambulatory, with family, bm8 20:57 Condition: stable 20:57 Discharge instructions given to patient, family, Instructed on discharge instructions, follow up and referral plans. no drinking with medication, no driving heavy equipment, medication usage, safety practices, wound care, Demonstrated understanding of instructions, follow-up care, medications, 21:00 Patient's length of stay was not longer than 2 hours. bm8 21:00 Patient left the ED. bm8 Signatures: Dispatcher [employer] Janeth Abreu RN RN vc1 Prachi Meyer Edwin, MD MD ec2 Gwyn Garcia RN RN bm8 Niki Moore RN RN al5
[2023-12-09 21:22] VITALS: BP 124/84; TEMP 98; O2SAT 100
== END 2023-12-09 21:00 | disposition home or self-care (01) ==
LOC: ER 20:03
PROC: 0HQLXZZ Repair Left Lower Leg Skin, External Approach (ICD-10-PCS; principal; 2023-12-09)
DX: S81.012A Laceration without foreign body, left knee, initial encounter (principal)
CPT/HCPCS: 12001; 96374; 99285